=== PATIENT | female | born 1990 | race Asian ===

== ENCOUNTER 2021-04-02 06:39 | Emergency (ER) | payer OTHER ==
[~2021-04-02] VITALS: Ht 180.3 cm; Wt 127.0 kg
[2021-04-02 06:49] VITALS: BP 144/71
[2021-04-02] MEDS ORDERED: CLOT15CR27 TP (07:26)
[2021-04-02 07:35] LABS: CLARITY URINE CLEAR (CLEAR); COLOR URINE YELLOW (YELLOW); KETONES URINE NEGATIVE (NEGATIVE); LEUKOCYTE ESTERASE URINE 3+ (NEGATIVE); NITRITE URINE NEGATIVE (NEGATIVE); OCCULT BLOOD URINE NEGATIVE (NEGATIVE); PH URINE 6.5 (4.5-8.0); PROTEIN URINE NEGATIVE (NEGATIVE); UROBILINOGEN URINE 0.2 E.U./dL (0.2-1.0)
[2021-04-02] MEDS ORDERED: NITR100C PO (08:15)
== END 2021-04-02 09:09 | disposition home or self-care (01) ==
LOC: ER 06:39
DX: B37.3 Candidiasis of vulva and vagina (principal); N39.0 Urinary tract infection, site not specified
CPT/HCPCS: 81003; 99283